=== PATIENT | male | born 1980 | race Caucasian/White ===

== ENCOUNTER 2021-07-10 09:56 | Outpatient (CLI) | payer OTHER, SELFPAY | END 2021-07-10 09:57 | disposition home or self-care (01) | LOC: ANHBWCAUD 09:58 | PROVIDERS: PCP Family Medicine; Visit Provider Otolaryngology | DX: H91.90 Unspecified hearing loss, unspecified ear (principal) | CPT/HCPCS: 92557; 92567 ==

== ENCOUNTER 2021-08-06 07:21 | Outpatient (RCR) | payer SELFPAY | END 2021-11-04 23:59 | disposition home or self-care (01) | LOC: ANHBWCAUD 07:21 | PROVIDERS: PCP Family Medicine; Visit Provider Family Medicine | DX: Z46.1 Encounter for fitting and adjustment of hearing aid (principal) | CPT/HCPCS: V5264 ==